=== PATIENT | male | born 1960 | race African-American/Black ===

== ENCOUNTER 2018-08-09 14:30 | Emergency (ER) | payer MEDICAID ==
[~2018-08-09] VITALS: Ht 180.3 cm; Wt 85.0 kg
[~2018-08-09 14:30] MED LIST: SEE MED SHEET
[2018-08-09 17:15] VITALS: BP 145/85
[2018-08-09] MEDS ORDERED: KETOROLAC 60MG/2ML VIAL IM ONE (17:15)
== END 2018-08-09 19:07 | disposition home or self-care (01) ==
LOC: ER 17:04
DX: M54.2 Cervicalgia (principal); M79.18 Myalgia, other site; I10 Essential (primary) hypertension; F17.200 Nicotine dependence, unspecified, uncomplicated
CPT/HCPCS: 72125; 96372; 99284; 99406; J1885

== ENCOUNTER 2019-06-24 17:27 | Emergency (ER) | payer MEDICAID ==
[~2019-06-24] VITALS: Ht 180.3 cm; Wt 95.0 kg
[2019-06-24 20:18] LABS: CLARITY URINE CLEAR (CLEAR); COLOR URINE YELLOW (YELLOW); KETONES URINE NEGATIVE (NEGATIVE); LEUKOCYTE ESTERASE URINE NEGATIVE (NEGATIVE); NITRITE URINE NEGATIVE (NEGATIVE); OCCULT BLOOD URINE NEGATIVE (NEGATIVE); PROTEIN URINE NEGATIVE (NEGATIVE); SPECIFIC GRAVITY URINE 1.007 (1.005-1.030); UROBILINOGEN URINE 0.2 E.U./dL (0.2-1.0)
[2019-06-24] MEDS ORDERED: KETOROLAC 60MG/2ML VIAL IM STA (21:01)
[2019-06-24 22:13] VITALS: BP 120/79
== END 2019-06-24 22:13 | disposition home or self-care (01) ==
LOC: ER 17:27
DX: M54.5 Low back pain (principal); I10 Essential (primary) hypertension; E03.9 Hypothyroidism, unspecified; F17.200 Nicotine dependence, unspecified, uncomplicated; Z98.890 Other specified postprocedural states
CPT/HCPCS: 72100; 81003; 96372; 99284; J1885

== ENCOUNTER 2021-03-18 16:29 | Emergency (ER) | payer MEDICAID ==
[~2021-03-18] VITALS: Ht 180.3 cm; Wt 92.0 kg
[2021-03-18 16:32] VITALS: BP 139/92
[2021-03-18] MEDS ORDERED: CEPH500C2 MT (16:51)
== END 2021-03-18 17:03 | disposition home or self-care (01) ==
LOC: ER 16:29
DX: L02.01 Cutaneous abscess of face (principal); I10 Essential (primary) hypertension; E03.9 Hypothyroidism, unspecified
CPT/HCPCS: 99281